=== PATIENT | male | born 1960 | race Caucasian/White ===

== ENCOUNTER 2016-11-01 00:59 | Inpatient (IN) | payer OTHER ==
[~2016-11-01] VITALS: Ht 172.7 cm; Wt 96.6 kg
--- NOTE | ~2016-11-01 | CATH ---
Cardiac Diagnostic Report Demographics Patient Name ROBERTO Cardozo Gender Male Date of 1960 Age 56 year(s) Patient Number [id number] Date of Study 11/01/2016 Visit Number [id number] Room Number G63[address] [place] [id number] Ht 172.72 cm Wt 97.7 kg Referring Efstratiou Primary Physician Physician Lenny Boateng MD Performing Efstratiou Secondary Physician Physician Lenny Boateng MD Diagnostic Efstratiou Assisting Physician Physician Lenny Boateng MD Interventional Physician Consumer Marketing Specialist Physician Findings and Conclusions Diagnostic Findings and Conclusion Patent recent stent No other critical stenosis or slow flow Diagnostic Recommendations Continue ASA and Birlinta Add amlodipine 2.5 mg Procedure Description The patient was brought to the diagnostic cardiac catheterization-EP laboratory in the fasting, non-sedated state. Informed consent was obtained in the written and verbal form after the risks and benefits were explained. The patient had no further questions and agreed to proceed. The planned puncture-incision site(s) were shaved and prepped with ChloraPrep and draped in the usual sterile manner. Supplemental oxygen, and pain control medications were delivered by a registered nurse under physician guidance. Surface ECG rhythm, blood pressure measurement, and pulse oximetry were monitored throughout the procedure. Arterial access. The access site was infiltrated with lidocaine. The vessel was entered with the Seldinger technique. A sheath was advanced into the vessel and used for catheter placement. Selective left coronary angiography. A catheter was advanced into the left coronary vessel ostium under Fluoroscopic guidance. Contrast was injected by hand. Images were obtained in multiple projections. Left heart catheterization. A catheter was advanced across the aortic valve to the left ventricle under fluoroscopic guidance. Resting hemodynamics were obtained. Selective right coronary angiography. A catheter was advanced into the right coronary vessel ostium under fluoroscopic guidance. Contrast was injected by hand. Images were obtained in multiple projections. Arterial artery hemostasis was achieved. The patient was transferred to a regular nursing floor via cart accompanied by a nurse. The patient left the laboratory in stable condition. Diagnostic Cath Status: Urgent Procedure Procedure Type Diagnostic procedure:Angiography:, Coronary Angios w/[facility] Indications: Chest pain and back pain. The procedure was explained in detail to the patient. Risks, complications and alternative treatments were reviewed. Written consent was obtained. Medications Reviewed with Patient prior to Procedure. Angiographic Findings Dominance: Right Cardiac Arteries and Lesion Findings LMCA: Normal (0% Stenosis). LAD: LAD stent jailed daig with DELANEY flow 3There is a previous stent on Prox LAD Proximal subsection showing wide patency. Lesion on Prox LAD: Ostial.30% stenosis . Lesion on 1st Diag: Ostial.60% stenosis . LCx: No significant stenosis RCA: Lesion on Prox RCA: Proximal subsection.60% stenosis . Coronary Tree Procedure Data Procedure Date Date: 11/01/2016Start: 03:44 PMEnd: 04:13 PM Entry Locations - Retrograde Percutaneous access was performed through the Right Radial artery (Primary location). A 6 Fr sheath was inserted. Unsuccessful closure attempt was performed using: an R band. Hemostasis was successfully obtained using Mechanical Compression. Closure Comments: R band applied by Nitza. 13 ml of air in band.. Procedure Medications Order and Administration + + + +--------+ !Time !Medication !Dosage !Route ! + + + +--------+ !11/01/2016 03:48 PM !Radial Heparin (ACC_3) !5000 units !I.A. ! + + + +--------+ !11/01/2016 03:48 PM !Radial Verapamil !1.5 mg !I.A. ! + + + +--------+ !11/01/2016 03:49 PM !Radial Nitroglycerin !200 mcg !I.A. ! + + + +--------+ !11/01/2016 03:51 PM !Oxygen !2 l/min !NC ! + + + +--------+ 11/01/2016 04:06 PM !Oxygen ! !NC ! + + + +--------+ Devices Used - A6 Fr. BS JL 3.5 Diag. Catheterwas used for:Left coronary angiography. - A6 Fr. BS JR 4 Diag. Catheterwas used for:Right coronary angiography. Contrast Material - Isovue 04273 ml Fluoroscopy Time: Diagnostic: 5:48 minutes. Total: 5:48 minutes. Fluoroscopy Dose: Diagnostic: 882 mGy. Total: 882 mGy. Estimated Blood Loss: 20 ml. Medical History Performed Procedures and Imaging Results - No ACC stress or imaging studies were performed. Allergies - No known allergies. Risk Factors The patient risk factors include:prior PCI on 11/01/2016;hypertension, last creatinine: 1.1 mg/dl, creatinine clearance: 104.85 ml/min and Current/Recent(w/in 1 year) tobacco use. Admission Data Admission Date: 11/01/2016 Admission Time: 02:08 AM Admit Source: Transfer [facility] Insurance Payors: Private health insurance. Admission Medications + +------+------+ + + + + !Medication !Dosage!Times !Last !Last !Administered !Comments ! ! ! !Per !Delivery !Delivery ! ! ! ! ! !Day !Date !Time ! ! ! + +------+------+ + + + + !Aspirin ! ! ! ! !Yes ! ! !(any) ! ! ! ! ! ! ! + +------+------+ + + + + !Statin (any)! ! ! ! !Yes ! ! + +------+------+ + + + + !RACHEAL ! ! ! ! !Yes ! ! !Inhibitor ! ! ! ! ! ! ! !(any) ! ! ! ! ! ! ! + +------+------+ + + + + !Beta Angel Luis! ! ! ! !Yes ! ! !(any) ! ! ! ! ! ! ! + +------+------+ + + + + !Bivalirudin ! ! ! ! !Yes ! ! + +------+------+ + + + + Clinical Evaluation Leading to Procedure - The patient's CAD presentation was assessed as: Unstable angina. - The patient's anginal syndrome during the past two weeks was assessed as: Class IV according to the [place] Cardiovascular [employer] Classification System (CCS). Snapshots Hemodynamics Condition: Rest O2 Consumption: Estimated: 247.14Heart Rate: 66 bpm Pressures (mmHg) +-----+ + !Site !Pressure ! +-----+ + !LV !123/9 ,27 ! +-----+ + !LV !121/9 ,26 ! +-----+ + !AO !124/76 (99) ! +-----+ + !LV !123/9 ,27 ! +-----+ + Valve Gradients and Areas + +---------+---------+---------+ +---------+ + !Valve !Peak !Mean !Area !Index !Flow !Source ! + +---------+---------+---------+ +---------+ + !Aortic !0 !0 ! ! ! ! ! + +---------+---------+---------+ +---------+ + !Aortic !0 !0 ! ! ! ! ! + +---------+---------+---------+ +---------+ + Shunts Oxygen Values O2 Capacity 225.76 O2 Consumption 247.14 Signatures dtt: Edd Campa dtblanche: 11/01/16 1544 Physician Self Edit
--- NOTE | ~2016-11-01 | CATH ---
Cardiac Diagnostic + PCI Report Demographics Patient Name ROBERTO Cardozo Gender Male Date of 1960 Age 56 year(s) Patient Number [id number] Date of Study 11/01/2016 Visit Number [id number] Room Number G63[address] [place] [id number] Ht 172.72 cm Wt 97.7 kg Referring Jalenamisha Manuel Allen MD Primary Physician Physician Performing Efstratiou Secondary Physician Physician Lenny Boateng MD Diagnostic Efstratiou Assisting Physician Physician Lenny Boateng MD Interventional Efstratiou Physician Support Staff Physician Lenny Boateng MD Findings and Conclusions Diagnostic Findings and Conclusion Moderate stenosis proximal RCA. 100% proximal LAD is culprit vessel. Diagnostic Recommendations PCI to LAD. Interventional Findings and Conclusion Successful aspiration thrombectomy followed by PEDRITO to proximal LAD. Interventional Recommendations DAPT indefinitely. Smoking cessation. Procedure Description The patient was brought to the diagnostic cardiac catheterization-EP laboratory by emergency personal. Physician deemed procedure as EMERGENT. The planned puncture-incision site(s) were shaved and prepped with ChloraPrep and draped in the usual sterile manner. Supplemental oxygen and pain control medications were delivered by a registered nurse under physician guidance. Surface ECG rhythm, blood pressure measurement, and pulse oximetry were monitored throughout the procedure. Arterial access. The access site was infiltrated with lidocaine. The vessel was entered with the Seldinger technique. A sheath was advanced into the vessel and used for catheter placement. Selective left coronary angiography. A catheter was advanced into the left coronary vessel ostium under Fluoroscopic guidance. Contrast was injected by hand. Images were obtained in multiple projections. Selective right coronary angiography. A catheter was advanced into the right coronary vessel ostium under fluoroscopic guidance. Contrast was injected by hand. Images were obtained in multiple projections. Angioplasty and Stent Placement: A guiding catheter was used to intubate the vessel. A 0.14 wire was then used to cross the lesion. A balloon catheter was placed across the lesion and inflated. The balloon catheter was then removed. A Drug Eluting Stent was placed and inflated. Post placement angiograms were performed. Arterial artery hemostasis was achieved. The patient was transferred to PCU via cart accompanied by a nurse. The patient left the laboratory in stable condition. Diagnostic Cath Status: Emergency Interventional Cath Status: Emergency Procedure Procedure Type Diagnostic procedure:Angiography:, Coronary Angios PCI procedure:Drug Eluting Coronary Stent:, LAD Indications: Acute HI, Elevated troponin and Chest pain. Angiographic Findings Dominance: Right Cardiac Arteries and Lesion Findings LMCA: Normal. LAD: Lesion on Prox LAD: Proximal subsection.100% stenosis 28 mm length . Pre procedure DELANEY 0 flow was noted. Post Procedure DELANEY III flow was present. The guidewire cross was successful.The lesion was diagnosed as a moderate risk lesion.Culprit lesion. Devices used - Whisper Wire .014 x 190. Number of passes: 1. - Xpress-Way Aspiration Catheter. Number of passes: 2. - Promus Premier 4.0 x 28 Stent. 1 inflation(s) to a max pressure of: 18 yonny. Lesion on 1st Diag: Proximal subsection.30% stenosis . Comments:Post stent. LCx: Normal. RCA: Lesion on Prox RCA: Proximal subsection.50% stenosis . Coronary Tree Procedure Data Procedure Date Date: 11/01/2016Start: 02:25 AMEnd: 03:16 AM Entry Locations - Antegrade Percutaneous access was performed through the Right Radial artery (Primary location). A 6 Fr sheath was inserted. Hemostasis was successfully obtained using Mechanical Compression. Closure Comments: 14 ml of air in R. Band by Martin Hammond.. Procedure Medications Order and Administration + + + + + !Time !Medication !Dosage !Route ! + + + + + !11/01/2016 02:27 AM !Radial Nitroglycerin !200 mcg !I.A. ! + + + + + !11/01/2016 02:27 AM !Radial Verapamil !1.5 mg !I.A. ! + + + + + !11/01/2016 02:27 AM !Radial Heparin (ACC_3) !2500 units !I.A. ! + + + + + !11/01/2016 02:38 AM !Heparin (ACC_3) !6000 units !I.V. bolus ! + + + + + 11/01/2016 02:39 AM !Nitroglycerin ! !I.V. drip ! + + + + + 11/01/2016 02:42 AM !Fentanyl !25 mcg ! ! + + + + + !11/01/2016 02:46 AM !Integrilin (ACC_7) !18 mg !I.C. ! + + + + + !11/01/2016 02:52 AM !Nipride !200 mcg !I.C. ! + + + + + !11/01/2016 02:52 AM !Nipride !100 mcg !I.C. ! + + + + + !11/01/2016 02:59 AM !Nipride !200 mcg !I.C. ! + + + + + !11/01/2016 02:59 AM !Nipride !100 mcg !I.C. ! + + + + + !11/01/2016 03:10 AM !Heparin (ACC_3) ! !I.V. bolus ! + + + + + Devices Used - A6 Fr. XBLAD 3.5 Guide Catheterwas used for:Left coronary angiography. - A6 Fr. XBLAD 3.5 Guide Catheterwas used for:LAD Intervention. - A6 Fr. BS JR 4 Diag. Catheterwas used for:Right coronary angiography. Contrast Material - Isovue 524783 ml Fluoroscopy Time: Diagnostic: 6:54 minutes. Total: 6:54 minutes. Fluoroscopy Dose: Diagnostic: 1806 mGy. Total: 1806 mGy. Estimated Blood Loss: 100 ml. Medical History Allergies - No known allergies. Risk Factors The patient risk factors include:Current/Recent(w/in 1 year) tobacco use. Admission Data Admission Date: 11/01/2016 Admission Time: 02:08 AM Admit Source: Transfer acute care facility Insurance Payors: Private health insurance. Clinical Evaluation Leading to Procedure - The patient's CAD presentation was assessed as: STEMI.The symptom onset was first noted on 11/01/2016 12:30 AM(time was estimated). Snapshots Hemodynamics Condition: Rest O2 Consumption: Estimated: 232.55Heart Rate: 48 bpm Pressures (mmHg) +-----+ + !Site !Pressure ! +-----+ + !AO !107/74 (90) ! +-----+ + !AO !6/-1 (3) ! +-----+ + !AO !100/77 (89) ! +-----+ + Shunts Oxygen Values O2 Capacity 225.76 O2 Consumption 232.55 Signatures dtt: Edd Campa dtd: 11/01/16 0225 Physician Self Edit
--- NOTE | ~2016-11-01 | ECHO ---
Transthoracic Echocardiography Report (TTE) Demographics Patient Name HENRIQUE MEJIA Date of Study 11/01/2016 Patient Number [id number] Visit Number [id number] Date of 1960 Room Number G6313 Gender Male Number Age 56 year(s) Referring Lokesh Galvez Night Time Nanny Vinete Boateng MD Physician Interpreting [facility] Conveyor Mechanic Physician Lenny Boateng MD Supervising Ordering [facility] MD/MLP Physician Lenny Boateng MD Nurse Stress Dope Dry House Operator Conclusions Contractility Score Summary At rest the following contractility abnormalities were noted: Hypokinesis of the Mid infero-septal, the Mid inferior, the Apical inferior, the Basal santino-septal, the Basal infero-septal and the Basal inferior segments; Akinesis of the Apical septal, the Apical lateral, the Apical anterior and the Apical cap segments; Dyskinesis of the Mid santino-septal segment. Contractility of all other segments appeared normal. Summary The estimated left ventricular ejection fraction is 40-45%. Mild to moderate concentric left ventricular hypertrophy. Diastolic assessment reveals Grade I diastolic dysfunction. Procedure Type of Study TTE procedure:2D Echocardiogram, M-Mode, Doppler , Color Doppler. Procedure Date Date: 11/01/2016 Start: 08:15 AM Study Location: Inpatient Portable Technical Quality: Adequate visualization Indications:Post PTCA. Additional Indications:Post STEMI Appropriate Use Criteria: 9 Patient Status: Routine HR: 58 bpm BP: 127/76 mmHg Allergies - No known allergies. M-Mode/2D Measurements LV Diastolic Dimension: 4.88 cm LV Systolic Dimension: 3.64 cm LV Septum Diastolic: 1.34 cm LV PW Diastolic: 1.23 cm AO Root Dimension: 2.9 cm Cardiac Output: 3.33 l/min LA Dimension: 3.4 cm EF Estimated: 45 % LVOT: 2 cm LVOT VTI: 18.3 cm RV Base: 2.54 cm LV Stroke volume: 57.46 ml RV Length: 7.29 cm TAPSE: 2.24 cm TDI-S': 16 cm/s Doppler Measurements AV Peak Velocity: 1.16 m/s MV Peak E-Wave: 0.61 m/s AV Peak Gradient: 5.38 mmHg MV Peak A-Wave: 0.85 m/s AV Mean Gradient: 3 mmHg MV E/A Ratio: 0.71 LVOT Peak Velocity: 0.92 m/s MV P1/2t: 37 msec TR Gradient:3.21 mmHg PV Peak Velocity: 0.98 m/s Estimated RAP:15 mmHg PV Peak Gradient: 3.87 mmHg Estimated RVSP: 18 mmHg Estimated PASP: 18.21 mmHg E' Septal Velocity: 0.07 m/s A' Septal Velocity: 0.11 m/s E' Lateral Velocity: 0.08 m/s A' Lateral Velocity: 0.13 m/s Findings Left Ventricle The left ventricle is normal in size . Mild to moderate concentric left ventricular hypertrophy. Diastolic assessment reveals Grade I diastolic dysfunction. Right Ventricle Normal right ventricle structure and function. Left Atrium Normal left atrial size. Right Atrium Normal right atrial size. IVC measures 2.26 cm with poor inspiratory collapse. Mitral Valve Mild mitral annular calcification. Aortic Valve The aortic valve is mildly sclerotic. Tricuspid Valve Trivial tricuspid regurgitation by color Doppler. Pulmonic Valve Normal pulmonic valve structure and function. Pericardial Effusion No evidence of pericardial effusion. Miscellaneous Visualized portions of the aortic root and ascending aorta appear normal in size. Pleural Effusion No evidence of pleural effusion. Contractility Score LV regional wall motion:(0-Non visualized 1-Normal 2-Hypokinesis 3-Akinesis 4-Dyskinesis 5-Aneurysm) Signature dtt: Edd Campa dtd: 11/01/16 0815 Physician Self Edit
[2016-11-01] MEDS ORDERED: VITAMIN D34000 UNIT PO (03:29)
--- NOTE | 2016-11-01 03:51 | NUR ---
Patient presented to [place] emergency room with 8/10 chest pain. EKG there showed ST elevation. Transferred to [facility]. To laboratory veterinarian upon arrival. Right radial cath with stent to LAD. History of high cholesterol, not on medication, heartburn and arthritis. Pack a day smoker for 30 years. Alert and oriented. Pleasant and cooperative with cares.
[2016-11-01 05:22] LABS: CALCIUM 8.4 mg/dL (8.5-10.5)
[2016-11-01 05:23] LABS: ALBUMIN 3.5 gm/dL (3.5-5.0); ANION GAP 13.4 (10.0-19.0); BLOOD UREA NITROGEN 20 mg/dL (6-24); CHLORIDE 112 mMol/L (96-110); CO2 21 mMol/L (22-32); CREATININE 1.1 mg/dL (0.6-1.3); ESTIMATED GFR (MDRD EQUATION) > 60; POTASSIUM 4.4 mMol/L (3.7-5.1); SODIUM 142 mMol/L (135-145); TOTAL BILIRUBIN 0.6 mg/dL (0.0-1.5); TOTAL PROTEIN 6.5 g/dL (6.0-8.4)
[2016-11-01 05:24] LABS: ALK PHOS 58 IU/L (33-138); ALT 73 IU/L (12-78); AST 405 IU/L (10-40)
--- NOTE | 2016-11-01 16:37 | NUR ---
Significant Event: pt had upper back pain today, then some chest discomfort, ms and nitro did not help. Lovenox and brillinta and tylenol and heat applied. Pt to matlab developer at 1530, no intervention. TR band r)radial again. Pt family here with him. Pt uses urinal. Up to chair this am. Follow up:
--- NOTE | 2016-11-02 04:55 | NUR ---
Significant Event: Patient is alert and oriented x 3. VSS on room air. HRs in the 50s-70s. SBPs in the high 90s-1 teens. Afebrile. Up with 1 assist. Coban to right wrist intact. 2+ pulse, soft, nontender, slightly ecchymotic. Patient had 10 beat run of V tach at beginning of shift, MD aware. To call if >10. Right hand IV, saline locked. Left hand IV with NS running TKO and Nitro at 5mcg. Tylenol given for headache at 0433. Patient is pleasant and cooperative with cares. Follow up:
[2016-11-02 05:02] LABS: BLOOD UREA NITROGEN 11 mg/dL (6-24); CALCIUM 8.5 mg/dL (8.5-10.5); CHLORIDE 109 mMol/L (96-110); CO2 25 mMol/L (22-32); CREATININE 1.1 mg/dL (0.6-1.3); ESTIMATED GFR (MDRD EQUATION) > 60; SODIUM 140 mMol/L (135-145)
--- NOTE | 2016-11-02 16:23 | NUR ---
Significant Event: VSS AND RA. DENIES CP. AFEBRILE. AMBULATES FERNANDEZ SEVERAL TIMES WITHOUT COMPLAINTS. NITRO GTT D/C'D THIS AM. SBPS 110S-130S. Follow up: CONTINUE PLAN OF CARE; D/C TMRW.
--- NOTE | 2016-11-03 04:48 | NUR ---
Significant Event: UP AD ALIX IN ROOM. DENIES PAIN ALL NIGHT. R) WRIST REMAINS SOFT WITHOUT DRAINAGE. PT SLEEPING WELL. REMAINS ON ROOM AIR. DENIES SOB. HR 50s-60s ALL NIGHT. SBP 96-103 AND DBP 60-66. COREG HELD AT HS DUE TO HR IN THE LOW 50s AND SBP IN THE 90s. Follow up:
[2016-11-03] MEDS ORDERED: NORVASC2.5 MG PO (11:34)
[2016-11-03] MEDS ORDERED: ASPIRIN EC81 MG PO (11:37)
[2016-11-03] MEDS ORDERED: COREG 3.1253.125 MG PO (11:38)
[2016-11-03] MEDS ORDERED: LIPITOR80 MG PO (11:38)
[2016-11-03] MEDS ORDERED: VASOTEC2.5 MG PO (11:40)
[2016-11-03] MEDS ORDERED: INSPRA25 MG PO (11:40)
[2016-11-03] MEDS ORDERED: NICOTINE PATCH1 EAC2 TRANS (11:42)
[2016-11-03] MEDS ORDERED: BRILINTA90 MG PO (11:42)
[2016-11-03] MEDS ORDERED: TYLENOL325 MG PO (11:43)
== END 2016-11-03 12:40 | disposition disaster alternative care site (69) | DRG 247 ==
LOC: GPCU 00:59
PROVIDERS: ADMIT Internal Medicine Cardiovascular Disease
DX: I21.3 ST elevation (STEMI) myocardial infarction of unspecified site (principal); I47.2 Ventricular tachycardia; I25.10 Atherosclerotic heart disease of native coronary artery without angina pectoris; Z23 Encounter for immunization; I50.9 Heart failure, unspecified
CPT/HCPCS: C1757; C1769; C1874; C1887; C1894; C9606; G0009; J0461; J1327; J1644; J1650; J2270; J2370; J3010; J7030; J7040; J7050; J7060

== ENCOUNTER → 2016-11-01 | Outpatient (CLI) | payer OTHER ==
[~2016-11-01] MED LIST: ALIGN4 MG PO; ASPIRIN EC81 MG PO; BRILINTA90 MG PO; COREG 3.1253.125 MG PO; ENTRESTO 24 MG1 EACH PO; INSPRA25 MG PO; K-TAB ER20 MEQ PO; LASIX20 MG PO; LIPITOR80 MG PO; NICOTINE PATCH1 EAC2 TRANS; NITROSTAT0.4 MG SL; NORVASC2.5 MG PO; PEPCID20 MG PO; PROTONIX40 MG PO; TYLENOL325 MG PO; VASOTEC2.5 MG PO; VITAMIN D34000 UNIT PO
== END | disposition disaster alternative care site (69) ==
LOC: GAIR 01:52
DX: I21.09 ST elevation (STEMI) myocardial infarction involving other coronary artery of anterior wall (principal); R07.9 Chest pain, unspecified
CPT/HCPCS: A0422; A0431; A0436; J2270

== ENCOUNTER → 2016-11-10 | Outpatient (CLI) | payer OTHER ==
--- NOTE | ~2016-11-10 | ESTC ---
Cardiac Perfusion Imaging Demographics Patient Name ROBERTO Cardozo Gender Male Patient Number [id number] Race Visit Number [id number] [place] [id number] Room Number Accession Number [id number] Height 68 inches Date of 1960 Weight 200 pounds A MD Vanna Barreto Interpreting Lokesh Galvez Date of study 11/10/2016 Physician A MD Pretty Abraham MD Supervising MD/MLP Lokesh Galvez NM Technologist A Ordering Physician Stress auto technician Stress ECG Reading Lokesh Galvez Nurse Mira Cardozo Physician A RN The procedure was explained in detail to the patient. Risks, complications and alternative treatments were reviewed. Written consent was obtained. Medications Reviewed with Patient prior to Procedure. Procedure Procedure Type: Nuclear Stress Test:Cardiolite Stress Test Procedure Start time: 11/10/2016 08:03 Indications: Post-PTCA. Risk Factors The patient risk factors include:prior PCI on 11/01/2016;former tobacco use, treated hypercholesterolemia and dyslipidemia. Conclusions Summary Perfusion Images: The overall quality of the study is good. Left ventricular cavity is noted to be normal on the stress and normal on the rest images. There is no evidence of abnormal lung activity. The right ventricle is not visualized an cannot be assessed. Impression ECG portion of the exercise stress test is clinically negative for ischemia by diagnostic criteria. DTS was 5. Pt achieved 7 METS. Myocardial perfusion imaging is moderately abnormal. 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 Overall left ventricular systolic function was mildly decreased and estimated at 50%. THe apex and mid to distal coronado are severely hypokinetic. TID ratio is 1.05. This is a intermediate risk stress test. Stress Protocols Resting ECG SR ASMI Pre-stress physical exam: Patient assessed by Dr Judge prior to testing. Stress Protocol:Exercise Predicted HR: 165 bpm ECG Findings Indeterminate ECG due to baseline abnormalities. Arrhythmias No rhythm abnormality. Symptoms Shortness of breath. Stress Interpretation Appropriate hemodynamic response to exercise. No significant ST-T wave changes with exercise. EKG portion is negative for ischemia by diagnostic criteria. The [place] Treadmill score was 5 .This corresponds to a low risk stress test. Imaging Results Summed scores - Summed stress score: 17 - Summed rest score: 12 - Summed difference score: 5 Stress ejection Ejection fraction:50 % EDV :159 ml ESV :79 ml Stroke volume :80 ml LV mass :163 gr Medical History Admission Medications + +------+ + + +---------+ !Name !Dosage!Times per day !Start date !Stop date !Details ! + +------+ + + +---------+ !Beta Angel Luis (any) ! ! ! ! ! ! + +------+ + + +---------+ !Aspirin (any) ! ! ! ! ! ! + +------+ + + +---------+ !Statin (any) ! ! ! ! ! ! + +------+ + + +---------+ !Ticagrelor ! ! ! ! ! ! + +------+ + + +---------+ Admission Data Admission date: 11/10/2016 Admission Time: 06:33 Hospital Status: Outpatient. Signatures dtt: Edd Judge dtd: 11/10/16 0803 Physician Self Edit
== END | disposition disaster alternative care site (69) ==
LOC: GRAD 06:33
DX: I25.2 Old myocardial infarction (principal); E78.00 Pure hypercholesterolemia, unspecified; E78.5 Hyperlipidemia, unspecified; Z87.891 Personal history of nicotine dependence
CPT/HCPCS: A9500

== ENCOUNTER → 2016-11-26 | Outpatient (CLI) | payer OTHER ==
[2016-11-26 10:50] LABS: BASOPHIL % 0.4 %; EOSINOPHIL # 0.2 K/uL (0.0-0.5); EOSINOPHIL % 1.7 %; HEMATOCRIT 45.2 % (37.0-53.0); HEMOGLOBIN 15.7 g/dL (12.0-17.0); IMMATURE GRANULOCYTE % 0.4 %; LYMPHOCYTE # 1.6 K/uL (0.8-4.0); LYMPHOCYTE % 16.1 %; MCHC 34.7 gm/dL (32.0-36.5); MCV 92.1 fl (83.0-98.0); MONOCYTE # 0.7 K/uL (0.0-1.0); MONOCYTE % 6.9 %; MPV 12.1 fl (9.4-12.4); NEUTROPHIL # (ANC) 7.5 K/uL (1.4-9.0); NEUTROPHIL % 74.5 %; NRBC % 0 /100WBC (0-0.00); PLATELET COUNT 178 K/uL (150-450); RBC 4.91 M/uL (4.00-6.00); RDW-CV 12.3 % (11.9-14.6); WBC 10.1 K/uL (4.0-11.0)
[2016-11-26 11:01] LABS: ANION GAP 12.2 (10.0-19.0); BLOOD UREA NITROGEN 12 mg/dL (6-24); CALCIUM 9.3 mg/dL (8.5-10.5); CHLORIDE 109 mMol/L (96-110); CO2 23 mMol/L (22-32); CPK 92 IU/L (35-332); ESTIMATED GFR (MDRD EQUATION) > 60; POTASSIUM 4.2 mMol/L (3.7-5.1); SODIUM 140 mMol/L (135-145)
== END ==
LOC: LNHI 10:43
PROVIDERS: Internal Medicine Cardiovascular Disease
DX: I25.10 Atherosclerotic heart disease of native coronary artery without angina pectoris (principal); R07.89 Other chest pain

== ENCOUNTER → 2016-12-08 | Outpatient (CLI) | payer OTHER ==
[2016-12-08 12:59] LABS: ANION GAP 13.7 (10.0-19.0); BLOOD UREA NITROGEN 21 mg/dL (6-24); CALCIUM 9.2 mg/dL (8.5-10.5); CHLORIDE 104 mMol/L (96-110); CO2 27 mMol/L (22-32); CREATININE 1.2 mg/dL (0.6-1.3); ESTIMATED GFR (MDRD EQUATION) > 60; SODIUM 141 mMol/L (135-145)
[2016-12-08 13:01] LABS: POTASSIUM 3.7 mMol/L (3.7-5.1)
== END | disposition disaster alternative care site (69) ==
LOC: LNHI 12:42
PROVIDERS: Internal Medicine Cardiovascular Disease
DX: E78.2 Mixed hyperlipidemia (principal); I25.5 Ischemic cardiomyopathy; I50.22 Chronic systolic (congestive) heart failure; I25.119 Atherosclerotic heart disease of native coronary artery with unspecified angina pectoris

== ENCOUNTER 2017-01-10 21:44 | Observation (INO) | payer OTHER ==
[~2017-01-10] VITALS: Ht 172.7 cm; Wt 84.8 kg
--- NOTE | ~2017-01-10 | CON ---
PATIENT'S NAME: HENRIQUE MEJIA [facility] AGE: 56 Y [address] ROOM: [place] [address] LOCATION: GPCU ADMIT DATE: 01/11/2017 Consultation DISCHARGE DATE: 01/11/2017 FAMILY PHYSICIAN: Jensen Farnsworth MD ATTENDING PHYSICIAN: David Lewis V DATE OF CONSULTATION: 01/11/2017 REFERRING PHYSICIAN: Leigh Olsen MD REASON FOR CARDIOLOGY CONSULT: Chest pain. HISTORY OF PRESENT ILLNESS: This is a 56-year-old male, familiar to [facility]. He was last seen in the office by Dr. Campa on 12/08/2016. He has a previous history of coronary artery disease with recent stenting to the LAD. He presented to the emergency department yesterday with complaints of lightheadedness and upper back pain. Due to a decrease in blood pressure, his Entresto dose was decreased on 01/10/2017, after his daughter called the office with complaints of his new symptoms. He does admit to having had a poor appetite over the last few days and it appears to be dehydrated. He denies any palpitations, nausea, or vomiting. At the time of this consult, he is resting comfortably in bed with no acute complaints at this time. PAST MEDICAL HISTORY: 1. Coronary artery disease. 2. Chronic systolic congestive heart failure. 3. Hypertension. 4. Hyperlipidemia. PAST SURGICAL HISTORY: 1. Coronary artery stenting to the proximal LAD. 2. Right hip surgery. FAMILY HISTORY: The patient's mother at age of 85 due to heart disease. His father at the age of 74 due to COPD. SOCIAL HISTORY: The patient is a former cigarette smoker. He quit smoking in 2017 and smoked for a total of 30 years. He denies alcohol or illicit drug use. CURRENT MEDICATIONS: 1. Aspirin 81 mg p.o. daily. 2. Brilinta 90 mg p.o. twice daily. PATIENT'S NAME: HENRIQUE MEJIA [facility] AGE: 56 Y [address] ROOM: [place] [address] LOCATION: GPCU ADMIT DATE: 01/11/2017 Consultation DISCHARGE DATE: 01/11/2017 FAMILY PHYSICIAN: Jensen Farnsworth MD ATTENDING PHYSICIAN: David Lewis V 3. Entresto 24/26 mg p.o. twice daily. 4. Inspra 25 mg p.o. daily. 5. Potassium chloride 40 mEq p.o. twice daily. 6. Lipitor 80 mg p.o. daily. 7. Vitamin D 8000 units p.o. daily. 8. NicoDerm patch 21 mg transdermally daily. MEDICATION ALLERGIES: No known medication allergies. REVIEW OF SYSTEMS: Pertinent positive review of systems as listed in HPI. All other review of systems evaluated and negative. DIAGNOSTICS: CMS evaluation shows a sodium of 140, potassium 3.1, BUN of 19, creatinine 1.2, glucose of 100, and a magnesium of 2.3. He has a proBNP level of 255. Cardiac enzyme trend shows a CPK of 199, then 173, then 163; CK-MB of 2.0 x2 values and then 1.3; and troponin I of less than 0.04 x3 values. PHYSICAL EXAMINATION: VITAL SIGNS: Temperature 97.9, pulse 44, respirations 16, blood pressure 156/71, O2 saturation 97% on room air. The patient weighs 84.8 kg. SKIN: [place], warm, and dry. EYES: Sclerae clear. No xanthelasma. ENT: Oral mucosa is pink and moist. No jugular venous distention or carotid bruits. CHEST: Respirations are even and unlabored. LUNGS: Clear to auscultation. HEART: Regular rate and rhythm. Normal S1, S2. Is bradycardic, but continues in a sinus rhythm. ABDOMEN: Soft and nontender. MUSCULOSKELETAL: Gait is normal. EXTREMITIES: Peripheral pulses are palpable. No clubbing, cyanosis, or edema. PSYCH: Alert and oriented. Mood and affect are appropriate. IMPRESSION AND PLAN: Per Dr. Leigh Olsen. 1. Atypical chest pain, currently resolved. 2. Coronary artery disease with recent coronary artery stenting. His cardiac enzymes as well as EKG show no signs suggestive of acute changes. He is on guideline-directed medical therapy. He is not on beta blockers due to his extreme bradycardia. 3. Chronic systolic congestive heart failure, [place] [employer] PATIENT'S NAME: HENRIQUE MEJIA [facility] AGE: 56 Y [address] [address] LOCATION: GPCU ADMIT DATE: 01/11/2017 Consultation DISCHARGE DATE: 01/11/2017 FAMILY PHYSICIAN: Jensen Farnsworth MD ATTENDING PHYSICIAN: David Lewis V class II, currently on Entresto, Lasix, and Inspira. 4. Hypotension. 5. Bradycardia, asymptomatic but we will avoid further AV grant blockade. Overall, the patient appears to be dehydrated with no signs of acute coronary syndrome. We will discontinue his Lasix and have him keep his followup appointment with Dr. Campa on 01/21/2017. Overall, the patient also describes back pain and then chest pain, which he describes as different from his previous myocardial infarction, but he did want to "check it out." We will go through congestive heart failure education with him again and change his Lasix to p.r.n. dosing greater than 3-pound weight gain or increased lower extremity edema present. We will also check another EKG prior to his possible dismissal today. Thank you for this consult. Thank for allowing [facility] to interact in the care of this patient. SURENDRA GARCIA APRN FOR MD RAKESH KEITH/piter /[id number] d: 01/11/17 1743 t: 01/17/17 1339, CONSULTATION REPORT
--- NOTE | ~2017-01-10 | DS ---
PATIENT'S NAME: HENRIQUE MEJIA [facility] AGE: 56 Y [address] ROOM: [place] [address] LOCATION: GPCU ADMIT DATE: 01/11/2017 Discharge Summary DISCHARGE DATE: 01/11/2017 FAMILY PHYSICIAN: Jensen Farnsworth MD ATTENDING PHYSICIAN: David Lewis V DISCHARGE DIAGNOSES: 1. Chest discomfort. 2. Hypotension. 3. Hypokalemia. 4. Reflux. 5. Chronic systolic congestive heart failure. REASON FOR ADMISSION: Chest discomfort and low blood pressure. HOSPITAL COURSE: Asher Lisbeth feels he was just a little dehydrated. He is status post stent and that seems to be functioning well. His proBNP was slightly elevated, but the remainder of his lab was benign with the exception of a potassium down at 3.1. We will go ahead and replace him in the short term. He will need a potassium recheck in 1 week since he is on medications that can potentially raise the potassium significantly. Additionally, he was having symptoms of dysphagia. This morning, said he felt like he can take fluids and pills okay, but when he ate he felt like it was collecting in the back of his throat. Further dialog disclosed he was taking his proton pump inhibitor with all his other medications in the morning, and I told him he needed to take that in the morning a half an hour before taking any other food or medications, although he could do just a sip of water with it. If he takes this and just not eradicate these symptoms then I suggested follow up with his primary physician regarding modified barium swallow or some other workup for the dysphagia. That said, if Dr. Bob okays his discharge with medications as ordered, he will go out on a cardiac prudent diet. Activity as tolerated. Medications per nursing med reconciliation. Follow up in 1 week as stated above. See my note in the chart regarding his physical exam. Note that this discharge preparation took greater than 30 minutes. PATIENT'S NAME: HENRIQUE MEJIA [facility] AGE: 56 Y [address] ROOM: [place] [address] LOCATION: [facility] ADMIT DATE: 01/11/2017 Discharge Summary DISCHARGE DATE: 01/11/2017 FAMILY PHYSICIAN: Jensen Farnsworth MD ATTENDING PHYSICIAN: David Lewis MD CCAlejandro/modl /[id number] d: 01/12/17 0254 t: 01/31/17 1609, DISCHARGE SUMMARY
--- NOTE | ~2017-01-10 | HP ---
PATIENT'S NAME: HENRIQUE MEJIA [facility] AGE: 56 Y [address] ROOM: [place] [address] LOCATION: GPCU ADMIT DATE: 01/11/2017 History & Physical DISCHARGE DATE: FAMILY PHYSICIAN: Jensen Farnsworth MD ATTENDING PHYSICIAN: ESTRELLITA HUANG V DATE OF SERVICE: CHIEF COMPLAINT: Back pain. HISTORY OF PRESENT ILLNESS: The patient is a 56-year-old male with past medical history of acute coronary syndrome, status post a drug-eluting stent to his LAD approximately 2 months ago. He also has a past medical history of chronic systolic congestive heart failure, on Entresto and Lasix. He presented to the ER with complaints of upper dull back pain which was on and off in the course of the whole day. At worst, it got to be 3 to 4 out of 10, but it was very consistent in quality with symptoms that he had upon presentation with his heart attack 2 months ago. In the ER, the patient had a grossly unremarkable workup and observation, an admission has been requested. REVIEW OF SYSTEMS: Positive for diminished appetite in the course of last couple of days. All systems have been reviewed and are negative aside from pertinent positives mentioned above. PAST MEDICAL HISTORY: 1. Coronary artery disease. 2. Acute coronary syndrome. 3. Percutaneous transluminal angioplasty with placement of a stent to 100% occluded LAD. 4. Chronic systolic congestive heart failure. PAST SURGICAL HISTORY: None. SOCIAL HISTORY: The patient was a smoker, but has quit since the time of his heart attack. At this point, he uses nicotine patch. FAMILY HISTORY: PATIENT'S NAME: HENRIQUE MEJIA [facility] AGE: 56 Y [address] ROOM: [place] [address] LOCATION: GPCU ADMIT DATE: 01/11/2017 History & Physical DISCHARGE DATE: FAMILY PHYSICIAN: Jensen Farnsworth MD ATTENDING PHYSICIAN: ESTRELLITA HUANG V Reviewed and noncontributory due to known past medical history. PHYSICAL EXAMINATION: VITAL SIGNS: His blood pressure is 86/56, heart rate is 56 and regular, saturating 96% on room air, afebrile, and respirations 16. GENERAL APPEARANCE: Well-developed, well-nourished, middle-aged male, in no acute distress. NEUROLOGICAL: Nonfocal. EYES: Pupils are equal and reactive to light. LYMPHATIC: No cervical lymphadenopathy. ENDOCRINE: No thyromegaly. LUNGS: Clear to auscultation bilaterally. HEART: Rate is bradycardic and regular with no appreciable murmurs, gallops, or rubs. ABDOMEN: Soft, nontender, and nondistended. : No costovertebral angle tenderness. VASCULAR: 2+ pedal pulses. MUSCULOSKELETAL: Unremarkable. SKIN: Warm and dry. PSYCHIATRIC: Slightly irritated mood with preserved affect and cognition. DIAGNOSTIC DATA: Review of the studies from the ER shows an EKG which shows sinus rhythm at 65 beats per minute with low-voltage QRS and poor R-wave progression in lateral leads. Two sets of cardiac enzymes are unremarkable. ASSESSMENT AND PLAN: This is a 56-year-old male with, 1. Strong recent history of coronary artery disease, who will be admitted for observation due to an intermediate angina. Given his recent procedure, we will request for MARCIA to evaluate him and decide on further steps. 2. Chronic systolic congestive heart failure. At this point, the patient appears quite compensated and we will continue him on his current full medical regimen. 3. History of tobacco use. Continue with nicotine patch. Additional management will depend on recommendations from Cardiology. Time dedicated to this patient's encounter is 25 minutes. ESTRELLITA HUANG MD PATIENT'S NAME: HENRIQUE MEJIA [facility] AGE: 56 Y [address] ROOM: [place] [address] [facility] ADMIT DATE: 01/11/2017 History & Physical DISCHARGE DATE: FAMILY PHYSICIAN: Jensen Farnsworth MD ATTENDING PHYSICIAN: ESTRELLITA HUANG/piter /[id number] D: [id number] T: 447 HISTORY & PHYSICAL
--- NOTE | ~2017-01-10 | ER ---
PATIENT'S NAME: HENRIQUE MEJIA [facility] AGE: 56 Y [address] ROOM: [place] [address] LOCATION: GPCU ADMIT DATE: 01/11/2017 ER/Outpatient Report DISCHARGE DATE: FAMILY PHYSICIAN: Jensen Farnsworth MD ATTENDING PHYSICIAN: ESTRELLITA HUANG V TIME: The patient was seen at 2200. HISTORY OF PRESENT ILLNESS: This is a 56-year-old male. He was previously reasonably healthy. He is in with a complaint of back pain and shoulder pain intermittently for the past 2 days associated with loss of appetite. He describes it as an aching pain. It is similar to his previous unstable angina/WA that occurred in October of this year. PAST MEDICAL HISTORY: Significant for 1. Coronary artery disease. He had a stent placed in October of this year. 2. He also has a history of congestive heart failure. His most recent ejection fraction was 40%. CURRENT MEDICATIONS: See list. REVIEW OF SYSTEMS: He denies any other recent illnesses. He has had a decreased appetite. No nausea. No vomiting. No diarrhea. All other systems are negative. SOCIAL HISTORY: He quit smoking in October. PHYSICAL EXAMINATION: GENERAL: An alert and cooperative male, in no acute distress. VITAL SIGNS: Stable. SKIN: Warm and dry. Color is normal. He appeared to be moderately uncomfortable. HEAD, EARS, EYES, NOSE, AND THROAT: Normal. NECK: Supple. HEART: Regular rate and rhythm without murmur. LUNGS: Clear. Breath sounds were equal. ABDOMEN: Soft and nontender. EXTREMITIES: Normal. NEUROLOGIC: Normal. PATIENT'S NAME: HENRIQUE MEJIA [facility] AGE: 56 Y [address] ROOM: [address] [place] [id number] LOCATION: GPCU ADMIT DATE: 01/11/2017 ER/Outpatient Report DISCHARGE DATE: FAMILY PHYSICIAN: Jensen Farnsworth MD ATTENDING PHYSICIAN: ESTRELLITA HUANG V DIAGNOSTIC STUDIES: EKG revealed normal sinus rhythm to sinus bradycardia, low voltage in chest leads, and an old anteroseptal infarct with no acute ST or T-wave changes. EMERGENCY ROOM COURSE: The patient was given nitroglycerin sublingual, and his pain resolved. Dr. Huang was called, who arrived promptly, evaluated the patient, and made arrangements to admit the patient. ASSESSMENT: 1. Chest pain/unstable angina. 2. Two months status post coronary angioplasty with stenting. PLAN: Admission for serial enzymes. MD LOR BANERJEE/evanl /[id number] d: 01/11/17 0453 t: 01/25/17 1819, OUTPATIENT REPORT
[~2017-01-10 21:44] MED LIST changes: -ALIGN4 MG PO; -ENTRESTO 24 MG1 EACH PO; -K-TAB ER20 MEQ PO; -LASIX20 MG PO; -NITROSTAT0.4 MG SL; -PEPCID20 MG PO; -PROTONIX40 MG PO
[2017-01-10 22:05] LABS: BASOPHIL % 0.4 %; EOSINOPHIL # 0.2 K/uL (0.0-0.5); EOSINOPHIL % 2.5 %; IMMATURE GRANULOCYTE % 0.3 %; LYMPHOCYTE # 1.9 K/uL (0.8-4.0); LYMPHOCYTE % 19.1 %; MCH 32.8 pg (27.0-34.0); MCHC 34.9 gm/dL (32.0-36.5); MCV 93.9 fl (83.0-98.0); MONOCYTE # 0.8 K/uL (0.0-1.0); MPV 11.6 fl (9.4-12.4); NEUTROPHIL # (ANC) 6.8 K/uL (1.4-9.0); NEUTROPHIL % 69.7 %; NRBC % 0 /100WBC (0-0.00); PLATELET COUNT 191 K/uL (150-450); RBC 4.58 M/uL (4.00-6.00); RDW-CV 12.7 % (11.9-14.6); WBC 9.8 K/uL (4.0-11.0)
[2017-01-10 22:16] LABS: INR - (THERAPEUTIC) 1.03 (0.92-1.07); PROTIME 10.8 SECONDS (9.8-11.4); PTT 26 SECONDS (25-32)
[2017-01-10 22:25] LABS: ALBUMIN 4.2 gm/dL (3.5-5.0); ALK PHOS 61 IU/L (33-138); ALT 57 IU/L (12-78); ANION GAP 12.1 (10.0-19.0); AST 31 IU/L (10-40); BLOOD UREA NITROGEN 19 mg/dL (6-24); CALCIUM 9.4 mg/dL (8.5-10.5); CHLORIDE 106 mMol/L (96-110); CO2 25 mMol/L (22-32); CPK 199 IU/L (35-332); CREATININE 1.2 mg/dL (0.6-1.3); ESTIMATED GFR (MDRD EQUATION) > 60; MAGNESIUM 2.3 mg/dL (1.8-2.6); POTASSIUM 3.1 mMol/L (3.7-5.1); SODIUM 140 mMol/L (135-145); TOTAL BILIRUBIN 0.8 mg/dL (0.0-1.5); TOTAL PROTEIN 7.7 g/dL (6.0-8.4)
[2017-01-11 00:20] LABS: CPK 173 IU/L (35-332)
[2017-01-11] MEDS ORDERED: ENTRESTO 24 MG1 EACH PO ×2 (02:41→02:44)
[2017-01-11] MEDS ORDERED: LASIX20 MG PO (02:45)
[2017-01-11] MEDS ORDERED: NITROSTAT0.4 MG SL (02:46)
--- NOTE | 2017-01-11 04:34 | NUR ---
pt alert and oriented upon arrival from er. from er by wheelchair, transfers with 1 assist standby, steady gait. denies pain when asked. slightly hypotensive, pulse also milena. iv to right ac in place saline locked. pt states he started have mid upper back pain and it was alot like the pain he had in october when he had an mi and had a left stent placed. has denies pain since arrival. on room air, denies sob. no noted skin issues. pt states he lives at home alone in [place]. uses call light approp.
--- NOTE | 2017-01-11 05:19 | NUR ---
Significant Event:Pt has continues to rest well during night. continues to deny chest pain or back pain when asked. vss continues to be slightly milena and hypotensive. continues to be on room air. Follow up:
[2017-01-11 07:38] LABS: CPK 163 IU/L (35-332)
[2017-01-11] MEDS ORDERED: PEPCID20 MG PO (08:36)
[2017-01-11] MEDS ORDERED: K-TAB ER20 MEQ PO (11:18)
--- NOTE | 2017-01-11 12:28 | NUR ---
Pt d/c to home with all belongings. edu on new meds. iv d/c'd. follow up appointment scheduled for next tuesday- appointment card given to patient.
== END 2017-01-11 12:39 | disposition disaster alternative care site (69) ==
LOC: GMED 21:44 → GPCU 01-11 01:37
PROVIDERS: Emergency Medicine; ADMIT Internal Medicine
DX: R07.89 Other chest pain (principal); I95.9 Hypotension, unspecified; E87.6 Hypokalemia; K21.9 Gastro-esophageal reflux disease without esophagitis; I25.2 Old myocardial infarction; Z87.891 Personal history of nicotine dependence; I11.0 Hypertensive heart disease with heart failure; I50.22 Chronic systolic (congestive) heart failure; E78.5 Hyperlipidemia, unspecified; Z98.890 Other specified postprocedural states; Z79.82 Long term (current) use of aspirin; Z79.899 Other long term (current) drug therapy
CPT/HCPCS: G0378

== ENCOUNTER → 2017-01-21 | Outpatient (CLI) | payer OTHER ==
[~2017-01-21] MED LIST changes: +ALIGN4 MG PO; +ENTRESTO 24 MG1 EACH PO; +K-TAB ER20 MEQ PO; +LASIX20 MG PO; +NITROSTAT0.4 MG SL; +PEPCID20 MG PO; +PROTONIX40 MG PO
[2017-01-21 10:28] LABS: ANION GAP 11.2 (10.0-19.0); BLOOD UREA NITROGEN 14 mg/dL (6-24); CALCIUM 9.5 mg/dL (8.5-10.5); CHLORIDE 108 mMol/L (96-110); CO2 25 mMol/L (22-32); CREATININE 1.2 mg/dL (0.6-1.3); ESTIMATED GFR (MDRD EQUATION) > 60; POTASSIUM 4.2 mMol/L (3.7-5.1); SODIUM 140 mMol/L (135-145)
== END | disposition disaster alternative care site (69) ==
LOC: LNHI 09:51
PROVIDERS: Internal Medicine Cardiovascular Disease
DX: I25.5 Ischemic cardiomyopathy (principal); E78.2 Mixed hyperlipidemia; I25.10 Atherosclerotic heart disease of native coronary artery without angina pectoris

== ENCOUNTER 2017-02-16 11:30 | Observation (INO) | payer OTHER ==
[~2017-02-16] VITALS: Ht 172.7 cm; Wt 80.5 kg
--- NOTE | ~2017-02-16 | ESTC ---
Cardiac Perfusion Imaging Demographics Patient Name ROBERTO Cardozo Gender Male Patient Number [id number] Race Visit Number [id number] Ethnicity Corporate ID Room Number G6319 Accession Number [id number] Height 68 inches Date of 1960 Weight 175 pounds Interpreting Sussy Cook Date of study 02/17/2017 Physician Supervising /JOSSELINE Cook NM Technologist Ordering Physician Stress sterile instrument technician Stress ECG Reading Sussy Cook Nurse Neo Damon Physician MD John Leal RN Procedure Procedure Type: Nuclear Stress Test:Exercise, Cardiolite Stress Test Procedure Start time: 02/17/2017 10:00 Indications: Chest pain. Risk Factors The patient risk factors include:prior PCI on 11/01/2016;former tobacco use, hypercholesterolemia, hypertension, dyslipidemia and prior MT . Conclusions Summary Medium inferolateral partially reversible mild defect. Small anteroseptal moderate partially reversible defect. No TID and normal LV size. LVEF:66%. Normal WM. DTS :7 Stress Protocols Resting ECG RSR Pre-stress physical exam: Un changed. Predicted HR: 165 bpm ECG Findings No ECG changes suggestive of ischemia. Arrhythmias No rhythm abnormality. Stress Interpretation Duration: 9:18 mins. Achieved:92% MPHR. METs: 10.5 DP:26 K. No chest pain. Reason for termination: SOB. No EKG changes of ischemia. No arrythmias. DTS : 7 (Low risk). Imaging Results High risk findings Summed scores - Summed stress score: 8 - Summed rest score: 7 - Summed difference score: 1 Stress ejection Ejection fraction:66 % EDV :125 ml ESV :43 ml Stroke volume :82 ml LV mass :133 gr LV size:Normal Normal LV function Imaging Protocols Rest Stress Isotope:Tc99m Sestamibi IV Isotope: Tc99m Sestamibi IV Isotope dose:12.2 mCi Isotope dose:37 mCi Date:02/17/2017 08:32 Date:02/17/2017 11:15 Technique: SPECT Technique: Gated Supine SPECT Supine IV remains in place after procedure. Scan Time:45-60 minutes post Scan Time:45-60 minutes post injection injection Medical History Admission Data Admission date: 02/16/2017 Admission Time: 11:48 Hospital Status: Inpatient. Signatures dtt: Joyce Hi dtd: 02/17/17 1000 Physician Self Edit
--- NOTE | ~2017-02-16 | ECHO ---
Transthoracic Echocardiography Report (TTE) Demographics Patient Name HENRIQUE MEJIA Date of Study 02/16/2017 D Patient Number [id number] Visit Number [id number] Date of 1960 Room Number G6319 Gender Male Number Age 56 year(s) Referring Restuarant Crew Worker Ethan CENTENO, Physician ISADORA Goddard Physician Interpreting Sussy Cook Director [place] Physician Supervising Ordering Sussy Cook MD/JOSSELINE Physician Nurse Stress Remarketing Manager Conclusions Contractility Score Summary Normal Left Ventricular contractility was noted. Summary The estimated left ventricular ejection fraction is 55%.Normal WM except the apex which appears moderately hypokinetic.Mild concentric left ventricular hypertrophy.Normal internal dimension. Mild pulmonic stenosis. Compared to study dated 11/01/2016 the EF is upto 55-60% compared to 40-45% with the WMA limited to the apex.There is mild PS. Procedure Type of Study TTE procedure:2D Echocardiogram, M-Mode, Doppler , Color Doppler. Procedure Date Date: 02/16/2017 Start: 02:14 PM Study Location: Inpatient Portable Technical Quality: Adequate visualization Appropriate Use Criteria: 9 Patient Status: Routine HR: 54 bpm BP: 113/60 mmHg Allergies - No known allergies. M-Mode/2D Measurements LV Diastolic Dimension: 4.32 cm LV Systolic Dimension: 2.4 cm LV Septum Diastolic: 1.13 cm LV PW Diastolic: 1.1 cm AO Root Dimension: 2.5 cm Cardiac Output: 4.95 l/min AV Cusp Separation: 1.8 cm RV Diastolic Dimension: 2.72 cm LA volume: 33 ml LVOT: 2.1 cm RV Base: 3.02 cm LVOT VTI: 26.5 cm RV Mid: 2.45 cm LV Stroke volume: 91.74 ml TAPSE: 3.07 cm TDI-S': 19.6 cm/s Doppler Measurements AV Peak Velocity: 1.6 m/s MV Peak E-Wave: 1.07 m/s AV Peak Gradient: 10.24 mmHg MV Peak A-Wave: 0.85 m/s AV Mean Gradient: 7 mmHg MV E/A Ratio: 1.26 LVOT Peak Velocity: 1.04 m/s MV P1/2t: 73 msec TR Gradient:9.49 mmHg PV Peak Velocity: 1.67 m/s Estimated RAP:3 mmHg PV Peak Gradient: 11.16 mmHg Estimated RVSP: 12 mmHg Estimated PASP: 12.49 mmHg E' Septal Velocity: 0.09 m/s A' Septal Velocity: 0.15 m/s E' Lateral Velocity: 0.13 m/s A' Lateral Velocity: 0.13 m/s Findings Left Ventricle Mild concentric left ventricular hypertrophy with normal EFand internal dimension.[place] is moderately hypokinetic with normal WM involving the rest of LV segments. Right Ventricle Normal right ventricle structure and function. Left Atrium Normal left atrial size. Right Atrium Normal right atrial size. Mitral Valve Trivial mitral regurgitation by color Doppler. Aortic Valve Normal aortic valve structure and function. Tricuspid Valve Trivial tricuspid regurgitation by color Doppler. Pulmonic Valve Mild pulmonic stenosis. Pericardial Effusion No evidence of pericardial effusion. Miscellaneous Visualized portions of the aortic root and ascending aorta appear normal in size. Pleural Effusion No evidence of pleural effusion. Contractility Score LV regional wall motion:(0-Non visualized 1-Normal 2-Hypokinesis 3-Akinesis 4-Dyskinesis 5-Aneurysm) Signature dtt: Joyce Hi dtd: 02/16/17 1414 Physician Self Edit
--- NOTE | ~2017-02-16 | DS ---
PATIENT'S NAME: HENRIQUE MEJIA [facility] AGE: 56 Y [address] ROOM: [place] [address] LOCATION: GPCU ADMIT DATE: 02/16/2017 Discharge Summary DISCHARGE DATE: 02/19/2017 FAMILY PHYSICIAN: Jensen Farnsworth MD ATTENDING PHYSICIAN: Joyce Hi DISCHARGE DIAGNOSES: 1. History of an acute anterior wall myocardial infarction, treated with a single drug-eluting stent in October of 2016. 2. Since then he is having recurrent chest pains and back pain similar to his myocardial infarction pains. 3. Difficulty to concentrate and a sense of being out of it and tiring easily. 4. Low blood pressure secondary to Entresto which was discontinued. 5. Elevated cholesterol. 6. History of tobacco abuse which he quit in at the time of myocardial infarction. 7. Intolerance to antidepressants. Prescribed by his primary care physician. 8. Weight loss of 40 pounds since his myocardial infarction. 9. History of increased PSA. 10. History of depression. 11. Negative EGD. 12. Rule out myocardial infarction. Normal EF now by echo. Cardiolite showed anteroseptal and inferior ischemia. 13. Bradycardia during his hospitalization. 14. Cardiac catheterization showed about a 30% lesion in his proximal RCA and a patent stent with slow flow distally. IFR of both the LAD, distal to the stent and distal to the RCA lesions are negative. RECOMMENDATION: 1. Cardiac diet. 2. Activity as tolerated. 3. Home with a 48-hour Holter monitor. 4. Sleep study as an outpatient. 5. Okay to go back to work on 28 of February. 6. Follow up with me in [place]. DISCHARGE MEDICATIONS: 1. Vitamin D3 8000 units a day. 2. Aspirin 81 mg a day. 3. Eplerenone 25 mg a day. 4. Ticagrelor 90 mg twice a day. 5. Tylenol p.r.n. 6. Nitroglycerin 0.4 mg sublingual p.r.n. PATIENT'S NAME: HENRIQUE MEJIA [facility] AGE: 56 Y [address] ROOM: [place] [address] LOCATION: GPCU ADMIT DATE: 02/16/2017 Discharge Summary DISCHARGE DATE: 02/19/2017 FAMILY PHYSICIAN: Jensen Farnsworth MD ATTENDING PHYSICIAN: Joyce Hi 7. Famotidine 20 mg at bedtime. 8. Align capsules. 9. Protonix 40 mg a day. COURSE IN THE HOSPITAL: The patient was hospitalized and ruled out. He underwent a stress test followed by a cardiac catheterization. His symptoms at this time at least are not related to his coronary artery disease. He is being evaluated for other possible related conditions that could be causing some of his symptoms including sleep apnea and significant bradycardia to account for his tiredness. MD LARA LIANG/piter /[id number] CC: Jensen Farnsworth MD d: 02/22/17 1140 t: 02/25/17 1304, DISCHARGE SUMMARY
--- NOTE | ~2017-02-16 | CATH ---
Cardiac Diagnostic + PCI Report Demographics Patient Name ROBERTO Cardozo Gender Male Date of 1960 Age 56 year(s) Patient Number [id number] Date of Study 02/18/2017 Visit Number [id number] Room Number G6319 [place] [id number] Ht 172.72 cm Wt 79.38 kg Referring Daja Rivera MD Primary Physician Physician Performing Sussy Secondary Physician Physician Joyce CEJA Diagnostic Sussy Assisting Physician Physician Joyce CEJA Interventional Sussy Physician Spike Maker Physician Joyce CEJA Findings and Conclusions Diagnostic Findings and Conclusion Elevated LVEDP (20). No gradient across aortic valve. Calcification involving proximal coronaries. Patent LAD stent with DELANEY 2 flow. Proximal RCA:30% (iFR = 1). iFR distal to stent:0.97 Diagnostic Recommendations iFR of RCA and LAD. Interventional Findings and Conclusion 30% lesion in the mildly ectactic portion of proximal dominant RCA with an IFR of 1. Flow down LAD DELANEY 2 without obstructive lesions. IFR 0.97. Interventional Recommendations Medical treatment. Procedure Description The patient was brought to the diagnostic cardiac catheterization-EP laboratory in the fasting, non-sedated state. Informed consent was obtained in the written and verbal form after the risks and benefits were explained. The patient had no further questions and agreed to proceed. The planned puncture-incision site(s) were shaved and prepped with ChloraPrep and draped in the usual sterile manner. Conscious sedation, supplemental oxygen, and pain control medications were delivered by a registered nurse under physician guidance. Surface ECG rhythm, blood pressure measurement, and pulse oximetry were monitored throughout the procedure. Arterial access. The access site was infiltrated with lidocaine. The vessel was entered with the Seldinger technique. A sheath was advanced into the vessel and used for catheter placement. Selective left coronary angiography. A catheter was advanced into the left coronary vessel ostium under Fluoroscopic guidance. Contrast was injected by hand. Images were obtained in multiple projections. Selective right coronary angiography. A catheter was advanced into the right coronary vessel ostium under fluoroscopic guidance. Contrast was injected by hand. Images were obtained in multiple projections. Left heart catheterization. A catheter was advanced across the aortic valve to the left ventricle under fluoroscopic guidance. Resting hemodynamics were obtained. iFR measurement was performed of initial vessel. The vessel was entered with a guiding catheter. The iFR wire was normalized and then advanced across the lesion. Measurements were taken. iFR measurement was performed of additional vessel. The vessel was entered with a guiding catheter. The iFR wire was normalized and then advanced across the lesion. Measurements were taken. Arterial artery hemostasis was achieved. The patient was transferred to a regular nursing floor via cart accompanied by a nurse. The patient left the laboratory in stable condition. Diagnostic Cath Status: Urgent Interventional Cath Status: Elective Procedure Procedure Type Diagnostic procedure:Angiography:, Coronary Angios w/[facility] PCI procedure:Additional Imaging:, FFR/iFR:, Initial Vessel, Add'l Vessel Indications: Chest pain and Abnormal Stress Test. The procedure was explained in detail to the patient. Risks, complications and alternative treatments were reviewed. Written consent was obtained. Medications Reviewed with Patient prior to Procedure. Angiographic Findings Dominance: Right Cardiac Arteries and Lesion Findings LMCA: Luminal irregularities. LAD: Type III. Stent after D1 is patent and jails D2. D1 arises right after origin of LAD. Flow down LAD is sluggish. D1 and D2 are small.There is a previous stent on Prox LAD Proximal subsection showing wide patency. Lesion on Mid LAD: Mid subsection. Pre procedure DELANEY II flow was noted. The guidewire cross was successful.Culprit lesion. Comments:iFR of LAD 0.97 Devices used - Verrata Pressure Wire. Number of passes: 1. Lesion on 2nd Diag: Ostial.50% stenosis . LCx: Luminal irregularities. RCA: Dominant. Proximal stenosis of 30% where there is mild ectasis. Lesion on Prox RCA: Mid subsection.30% stenosis . Pre procedure DELANEY III flow was noted. The guidewire cross was successful.Culprit lesion. FFR + + + + !FFR !Stage/Medication !Dosage ! + + + + !1 ! ! ! + + + + Devices used - Verrata Pressure Wire. Number of passes: 1. Coronary Tree Procedure Data Procedure Date Date: 02/18/2017Start: 01:43 PMEnd: 02:52 PM Entry Locations - Retrograde Percutaneous access was performed through the Right Femoral artery (Primary location). A 7 Fr sheath was inserted. Hemostasis was successfully obtained using Perclose ProGlide (Mcnulty). Closure Comments: Deployed by Martin Navas . Procedure Medications Order and Administration + + + + + !Time !Medication !Dosage !Route ! + + + + + !02/18/2017 01:41 PM !Versed !1 mg !I.V. ! + + + + + !02/18/2017 01:41 PM !Fentanyl !50 mcg !I.V. ! + + + + + !02/18/2017 01:55 PM !Heparin (ACC_3) !5000 units !I.V. bolus ! + + + + + !02/18/2017 02:09 PM !Heparin (ACC_3) !2000 units !I.V. bolus ! + + + + + !02/18/2017 02:18 PM !Heparin (ACC_3) ! !I.V. drip ! + + + + + 02/18/2017 02:27 PM !Atropine !0.5 mg !I.V. ! + + + + + !02/18/2017 02:26 PM !0.9% NaCl !200 ml !I.V. bolus ! + + + + + Devices Used - A6 Fr. BS JR 4 Diag. Catheterwas used for:Right coronary angiography. - A6 Fr. BS JL 4 Diag. Catheterwas used for:Left coronary angiography. - A6 Fr. JR4 Guide Catheterwas used for:RCA Intervention. - A6 Fr. JL 4 JJ Guide Catheterwas used for:LAD Intervention. Contrast Material - Isovue 322815 ml Fluoroscopy Time: Diagnostic: 8:18 minutes. Total: 8:18 minutes. Fluoroscopy Dose: Diagnostic: 1710 mGy. Total: 1710 mGy. Estimated Blood Loss: 10 ml. Medical History Allergies - No known allergies. Risk Factors The patient risk factors include:prior PCI on 11/01/2016;treated hypercholesterolemia, last creatinine: 1.2 mg/dl, creatinine clearance: 78.09 ml/min, dyslipidemia, Current/Recent(w/in 1 year) tobacco use and prior [place] . Admission Data Admission Date: 02/16/2017 Admission Time: 11:48 AM Admit Source: Emergency department Insurance Payors: Private health insurance. Admission Medications + +------+-------+ + + + + !Medication!Dosage!Times !Last !Last !Administered !Comments ! ! ! !Per Day!Delivery !Delivery ! ! ! ! ! ! !Date !Time ! ! ! + +------+-------+ + + + + !Aspirin ! ! ! ! ! ! ! !(any) ! ! ! ! ! ! ! + +------+-------+ + + + + !Statin ! ! ! ! ! ! ! !(any) ! ! ! ! ! ! ! + +------+-------+ + + + + !Ticagrelor! ! ! ! ! ! ! + +------+-------+ + + + + Clinical Evaluation Leading to Procedure Diagnosed on 02/18/2017 02:40 PM. - The patient's CAD presentation was assessed as: Unstable angina. - The patient's anginal syndrome during the past two weeks was assessed as: Class III according to the [place] Cardiovascular Society Classification System (CCS). - The patient has been in a state of heart failure within the past two weeks. - The patient's heart failure status was assessed as NYHA Class I. [place] . Ejection Fraction - Method: Echocardiography. EF%: 55. Hemodynamics Condition: Rest O2 Consumption: Estimated: 213.66Heart Rate: 49 bpm Pressures (mmHg) +-----+ + !Site !Pressure ! +-----+ + !LV !126/-1 ,12 ! +-----+ + !LV !131/0 ,13 ! +-----+ + !LV !124/0 ,19 ! +-----+ + !LV !123/0 ,8 ! +-----+ + !AO !131/69 (94) ! +-----+ + !LV !126/-1 ,11 ! +-----+ + !AO !124/64 (88) ! +-----+ + !AO !121/66 (88) ! +-----+ + Valve Gradients and Areas + +---------+---------+---------+ +---------+ + !Valve !Peak !Mean !Area !Index !Flow !Source ! + +---------+---------+---------+ +---------+ + !Aortic !0 !0 ! ! ! ! ! + +---------+---------+---------+ +---------+ + !Aortic !0 !0 ! ! ! ! ! + +---------+---------+---------+ +---------+ + Shunts Oxygen Values O2 Capacity 189.04 O2 Consumption 213.66 Discharge Data Discharge Date: 02/19/2017 Hospital Status: Inpatient Signatures dtt: Joyce Hi dtblanche: 02/18/17 1343 Physician Self Edit
--- NOTE | ~2017-02-16 | HP ---
PATIENT'S NAME: HENRIQUE MEJIA [facility] AGE: 56 Y [address] ROOM: [address] [place], [place] [id number] LOCATION[facility] ADMIT DATE: 02/16/2017 History & Physical DISCHARGE DATE: FAMILY PHYSICIAN: Jensen Farnsworth MD ATTENDING PHYSICIAN: Joyce Hi DATE OF SERVICE: HISTORY OF PRESENT ILLNESS: Mr. Mejia is a 56-year-old male patient, who had an WY involving the anterior wall on November 01. He was treated with 1 stent. At the time of his WY, he had mostly burning in his back between his shoulder blades with some radiation to the neck as well as some sensations in his chest. Shortly after having his stent, he had recurrences of pain, so he was cathed again and the stent was patent. He had a 60% lesion involving D1, proximal right coronary artery had a 50% to 60% lesion. He had an ejection fraction of 40% at the time of WY. This stent was proximal to the diagonal vessel. He had a nuclear stress test, which showed an EF of 50% later and his echo showed an EF of 45%. At that point, he was sent back to cardiac rehab, and he works as a local company truck driver. I saw him in [facility] because he has not been feeling well, and there has been recurrent episodes of difficulty to concentrate and some sense of feeling out of it and tiring rather easily. He thought his blood pressures were running low whenever he took the Entresto and that was the reason for his ill feeling. He did not have any chest pain or shortness of breath though. He has been exercising 30 minutes a day 5 days a week with no paroxysmal nocturnal dyspnea or orthopnea. He has been in functional class II with no lightheadedness, dizziness, syncope, presyncope, palpitations, or ankle swelling. The patient has history of elevated cholesterol, and he quit smoking at the time of his WY. He has no history of hypertension, type 2 diabetes or family history of premature coronary artery disease. The patient denies any history of rheumatic fever, heart murmur, heart failure, dilated or enlarged heart, or any diagnosed cardiac arrhythmias. After evaluating him, I stopped his Entresto and atorvastatin and cut the eplerenone dose to 12.5 mg a day. I tried to get him set up for a trend oximetry at night, and he did try to go on an antidepressant, which apparently did not help him much. In the meantime, he has been having some burning across the back of his chest again that lasts some hours or so. He also has brief epigastric pain radiating to the left neck. After reviewing his cath film, I wondered whether he should come in to the hospital again as his chest pains were very similar to his WY pains. PATIENT'S NAME: HENRIQUE MEJIA [facility] AGE: 56 Y [address] ROOM: [place] [address] LOC[facility] ADMIT DATE: 02/16/2017 History & Physical DISCHARGE DATE: FAMILY PHYSICIAN: Jensen Farnsworth MD ATTENDING PHYSICIAN: Joyce Hi MEDICATIONS: 1. Acetaminophen 325 mg 2 tablets as needed. 2. Aspirin 81 mg a day. 3. Atorvastatin 80 mg a day. 4. Brilinta 90 mg twice a day. 5. He is holding the atorvastatin. Entresto is being held. 6. Furosemide 20 mg a day. 7. Inspra 25 mg half a tablet a day. 8. Nicotine patch periodically as needed. 9. Nitrostat p.r.n. 10. Vitamin D3 1000 units 4 capsules a day. ALLERGIES: NO KNOWN DRUG ALLERGIES. PAST MEDICAL HISTORY: Apparently, he had a surgery and bone graft to his right leg. SOCIAL HISTORY: The patient has lost about 40 pounds since he has had his WY. He still does not feel good, and his appetite is poor. He sleeps well, but apparently he snores quite badly and that is the reason he had his sleep apnea ordered. He denies abusing alcohol or recreational drugs. FAMILY HISTORY: No premature coronary artery disease. REVIEW OF SYSTEMS: 1. Corrective lenses. 2. History of increased PSA. 3. Depression. 4. The patient had an EGD and scope about 3 weeks ago. PHYSICAL EXAMINATION: VITAL SIGNS: On examination, his blood pressure is 114/68, weight is 179.4 pounds, heart rate is 50, respirations 16, and oxygen saturation is 96 pounds. HEENT: Normal. NECK: Supple with no JVD, thyromegaly, lymphadenopathy, or carotid bruit. CARDIAC: PMI is not well located. First and second heart sounds are regular. There are no added sounds or murmurs. CHEST: Clear to auscultation. ABDOMEN: Soft, nontender. Bowel sounds are normally present. EXTREMITIES: Reveal no edema. CENTRAL NERVOUS SYSTEM: Intact. PATIENT'S NAME: HENRIQUE MEJIA [facility] AGE: 56 Y [address] ROOM: [place] [address] LOC[facility] ADMIT DATE: 02/16/2017 History & Physical DISCHARGE DATE: FAMILY PHYSICIAN: Jensen Farnsworth MD ATTENDING PHYSICIAN: Joyce Hi ASSESSMENT: A 56-year-old male patient with recent history of myocardial infarction in October, treated with primary stent. He has some residual lesions involving his right coronary artery and diagonals. He has not felt well since his myocardial infarction and has lost some weight, in addition to which he is currently beginning to have the same back and chest pain that he had before. RECOMMENDATION: Admit to the hospital for observation and rule him out. If he rules out, we will repeat the stress test. We will also check his D-dimer and proBNP. Again, I appreciate this opportunity to participate in the care of Mr. Mejia. MD LARA LIANG/piter /[id number] D: [id number] T: [id number] HISTORY & PHYSICAL
[~2017-02-16 11:30] MED LIST changes: -ALIGN4 MG PO; -PROTONIX40 MG PO
[2017-02-16] MEDS ORDERED: ALIGN4 MG PO (12:03)
[2017-02-16] MEDS ORDERED: PROTONIX40 MG PO (12:05)
--- NOTE | 2017-02-16 12:40 | NUR ---
PT is 56 y/o male admit for chest pain for . PT alert and oriented x3. Came over from office. No allergies. Hx stent to LAD in as well as an TN. Hx hypercholest,CP,TN,arthritis,gerd,heartburn, constipation,depression. Resides at home by himself. Pt states he's been having chest pain off and on the past couple of days and was just tired of it so he drove from [place] to [place] to see today. Chest xray and EKG done today. Stress test tmw. NPO after midnight.
[2017-02-16 12:43] LABS: BASOPHIL % 0.4 %; EOSINOPHIL # 0.1 K/uL (0.0-0.5); EOSINOPHIL % 0.9 %; HEMATOCRIT 40.3 % (37.0-53.0); HEMOGLOBIN 13.9 g/dL (12.0-17.0); IMMATURE GRANULOCYTE % 0.3 %; LYMPHOCYTE # 1.3 K/uL (0.8-4.0); LYMPHOCYTE % 18.4 %; MCH 32.6 pg (27.0-34.0); MCHC 34.5 gm/dL (32.0-36.5); MCV 94.6 fl (83.0-98.0); MONOCYTE # 0.6 K/uL (0.0-1.0); MONOCYTE % 8.5 %; MPV 11.6 fl (9.4-12.4); NEUTROPHIL # (ANC) 4.9 K/uL (1.4-9.0); NEUTROPHIL % 71.5 %; NRBC % 0 /100WBC (0-0.00); PLATELET COUNT 187 K/uL (150-450); RBC 4.26 M/uL (4.00-6.00); RDW-CV 12.9 % (11.9-14.6); WBC 6.8 K/uL (4.0-11.0)
[2017-02-16 12:54] LABS: INR - (THERAPEUTIC) 1.07 (0.92-1.07); PROTIME 11.2 SECONDS (9.8-11.4); PTT 25 SECONDS (25-32)
[2017-02-16 13:03] LABS: ALBUMIN 3.9 gm/dL (3.5-5.0); ALK PHOS 52 IU/L (33-138); ALT 39 IU/L (12-78); AST 17 IU/L (10-40); BLOOD UREA NITROGEN 19 mg/dL (6-24); CALCIUM 9.1 mg/dL (8.5-10.5); CHLORIDE 108 mMol/L (96-110); CO2 26 mMol/L (22-32); CPK 63 IU/L (35-332); CREATININE 1.2 mg/dL (0.6-1.3); MAGNESIUM 2.2 mg/dL (1.8-2.6); SODIUM 140 mMol/L (135-145); TOTAL BILIRUBIN 0.9 mg/dL (0.0-1.5)
--- NOTE | 2017-02-16 16:29 | NUR ---
Significant Event: A/OX3, VSS ON ROOM AIR. PT. GETS UP SBA TO BATHROOM, RESTING IN BED. NO PAIN OR CHEST PAIN SINCE ADMISSION. PT. NPO AFTER MIDNIGHT FOR STRESS TEST IN AM. ATE ALL OF LUNCH. PT. HASN'T VOIDED YET, STILL NEED A UA. L)FA IV HAS NS @ 75mL/HR, WITH HEPARIN DRIP @ 1000 UNITS/HER, NEXT PTTHP DUE @ 1900. CONTINUES ON ACS ORDERS. DR. Lauren STILL NEEDS TO FILL OUT HOME MED LIST. COOPERATIVE WITH CARES, RESTING IN BED. BRUISE TO R)UPPER ARM. LAST BM WAS THIS AM. Follow up: CONTINUE WITH POC.
[2017-02-16 17:01] LABS: BILIRUBIN URINE NEGATIVE (NEGATIVE); BLOOD URINE NEGATIVE /UL (NEGATIVE); COLOR URINE STRAW (YELLOW); GLUCOSE URINE NEGATIVE (NEGATIVE); KETONE URINE 50 mg/dL (NEGATIVE); LEUKOCYTES URINE NEGATIVE /UL (NEGATIVE); NITRITE URINE NEGATIVE (NEGATIVE); PROTEIN URINE NEGATIVE (NEGATIVE); SPEC GRAVITY URINE 1.025 (1.003-1.035); TURBIDITY URINE CLEAR (CLEAR); UROBILINOGEN URINE 4 mg/dL (NORMAL)
[2017-02-16 19:29] LABS: CPK 55 IU/L (35-332)
[2017-02-17 00:51] LABS: CPK 50 IU/L (35-332)
--- NOTE | 2017-02-17 05:11 | NUR ---
Significant Event: PT HAS RESTED IN BED ALL SHIFT. DENIES ANY C/O PAIN/PRESSURE OR SHORTNESS OF BREATH. HEPARIN INFUSION CONTS AT 1100 UNITS/HR WITH THE NEXT PTTHP AT 0630. VOIDS PER URINAL WITH OUT DIFFICULTY. Follow up: STRESS TEST THIS AM.
[2017-02-17 06:43] LABS: CPK 50 IU/L (35-332)
--- NOTE | 2017-02-17 16:30 | NUR ---
Significant Event: A/OX3, VSS ON ROOM AIR. NO CHEST PAIN/PRESSURE ALL DAY. PT. WENT DOWN FOR STRESS TEST, WILL HAVE A HEART CATH DONE TOMORROW AFTER 1300, GROIN APPROACH. MAY HAVE A CLEAR LIQUID DIET AT 0600, THEN NPO AFTER THAT. PERMITS SIGNED, PT. WOULD LIKE TO SHOWER IN AM & SHAVE GROINS THEN. IV TO L)FA HAS NS @ 75mL/HR AND HEPARIN DRIP @ 1100 UNITS/HR, NEXT PTTHP DUE NOW. PT. GETS UP SBA TO BATHROOM. Follow up: CONTINUE WITH POC.
--- NOTE | 2017-02-18 04:12 | NUR ---
Significant Event: A/0X3. RESTED IN BED ALL OF SHIFT. TURNS SELF. AFEBRILE. VSS ON RA. IV TO L) FA WITH NS @ 75 MLS/H AND HEPARIN RUNNING AT 1200 UNITS/H. NEXT PTTHP. IS AT 0600. DENIES CHEST PAIN. VOIDED 1300 MLS. NO BM THIS SHIFT. WILL BE NPO AT 0600 FOR HEART CATH TODAY. PERMITS SIGNED AND ON THE CHART. GROIN STILL NEEDS PREPPED. HEART CATH AT 1 PM TODAY. Follow up: CONTINUE WITH PLAN OF CARE.
--- NOTE | 2017-02-18 11:46 | NUR ---
Introduced self and role of care management to patient. He lives in [place] by himself. He states that he is able to do all his own ADL's. He has family and friends that are available to assist as needed. He plans on returning home on discharge. He denies any needs at this time. Will continue to follow.
--- NOTE | 2017-02-18 13:56 | NUR ---
1325 PATIENT OFF UNIT TO GO FOR HEART CATH.
--- NOTE | 2017-02-18 13:56 | NUR ---
1318 [facility] LAB ALERT CALLED FOR HEPARIN 71.0-NO ADJUSTMENTS NEEDED LAB PUT IN FOR DRAW AT 0400 TOMORROW
--- NOTE | 2017-02-18 17:04 | NUR ---
PATIENT IS AAOX3. HE MOVES ALL AND FOLLOWS ALL COMMANDS. NO SIGNS OF EDEMA AND PULSES STRONG BIALTERALLY-RADIAL AND PEDAL. PATIENT IS ON ROOM AIR. HE WAS NPO FOR HEART CATH THIS AFTERNOON AND IS NOW ON REGULAR DIET. HE HEPARIN DRIP HAS BEEN TURNED OFF AND AFTER A 500ML BOLUS HIS FLUIDS WILL BE TURNED OFF. HE VOIDS TO URINAL AND IS CURRENTLY RESTING FLAT TILL 1800. HE HAS DENIED ANY PAIN, JUST UNCOMFORTABLE ON HIS BACK. HE CURRENTLY HAS A LEFT FOREARM PIV AND SHOW BRUSING TO HIGH RIGHT UPPER ARM. ALL TESTS WERE NEGATIVE AND PLANS FOR DISCHARGE TOMORROW.
[2017-02-19 03:59] LABS: BASOPHIL % 0.5 %; EOSINOPHIL # 0.2 K/uL (0.0-0.5); EOSINOPHIL % 3.2 %; HEMATOCRIT 36.6 % (37.0-53.0); HEMOGLOBIN 12.2 g/dL (12.0-17.0); IMMATURE GRANULOCYTE % 0.2 %; LYMPHOCYTE # 1.1 K/uL (0.8-4.0); MCH 32.4 pg (27.0-34.0); MCHC 33.3 gm/dL (32.0-36.5); MCV 97.1 fl (83.0-98.0); MONOCYTE # 0.6 K/uL (0.0-1.0); MONOCYTE % 10.8 %; MPV 11.8 fl (9.4-12.4); NEUTROPHIL % 67.3 %; NRBC % 0 /100WBC (0-0.00); RBC 3.77 M/uL (4.00-6.00); RDW-CV 13.2 % (11.9-14.6); WBC 5.9 K/uL (4.0-11.0)
[2017-02-19 04:00] LABS: PLATELET COUNT 149 K/uL (150-450)
--- NOTE | 2017-02-19 05:31 | NUR ---
Significant Event: A&Ox3. FAC/VILLAGRAN. PT is independent in movement. Lung sounds clear. SBP 95-124; HR 50s. PPP. Groin site is soft with dressing C/D/I. Plan is to discharge home today. Follow up: Clarify halter monitor order.
--- NOTE | 2017-02-19 08:00 | NUR ---
PATIENT STATES HE DOES NOT WANT HIS MORNING DOSE OF MEDICATIONS HERE AT HOSPITAL BEFORE DC'D. STATES HE WILL TAKE HIS MORNING MEDICATIONS WHEN HE GETS HOME.
--- NOTE | 2017-02-19 08:57 | NUR ---
PATIENT GIVEN WRITTEN DISMISSAL INSTRUCTIONS INCLUDING NEW HOME MEDICATION LIST WITH PRESCRIPTIONS ON DOSE CHANGE OF INSPRA, D/C NICOTINE PATCH, ACTIVITY RESTRICTIONS INCLUDING NO DRIVING FOR [address] SMITH, NO HEAVY LIFTING OF >5 LBS FOR 5 DAYS, AND INSTRUCTIONS ON HOW TO CARE FOR GROIN SITE POST-HEART CATH. PATIENT TO HAVE SLEEP STUDY OUTPT AND HOLTER MONITOR PLACED IN 10DAYS, AT THAT TIME TO WEAR FOR 48 HOURS. NON-INVASIVE CARDIOLOGY ORDER IN PLACE AND INFORMATION FAXED TO DEPT. PATIENT TO MAKE FOLLOW-UP APPOINTMENT TO SEE DR Lauren IN [place] IN 2 WEEKS. PATIENT STATES UNDERSTANDING OF INFORMATION DISCUSSED WITH RN. TELEMETRY DC'D AND PIV TO LEFT FA DC'D WITH GAUZE AND COBAN APPLIED. AMBULATE TO [facility]ONT OF [facility] ENTRANCE WITH RN, FAMILY AND BELONGINGS BAG AT 0830.
== END 2017-02-19 08:30 | disposition disaster alternative care site (69) ==
LOC: EDSTATUS 11:30 → GPCU 11:48
PROVIDERS: ADMIT Internal Medicine Interventional Cardiology
DX: I25.10 Atherosclerotic heart disease of native coronary artery without angina pectoris (principal); I25.2 Old myocardial infarction; F32.9 Major depressive disorder, single episode, unspecified; E11.9 Type 2 diabetes mellitus without complications; E78.00 Pure hypercholesterolemia, unspecified; Z79.82 Long term (current) use of aspirin; Z79.899 Other long term (current) drug therapy; Z87.891 Personal history of nicotine dependence
CPT/HCPCS: A9500; C1760; C1769; C1887; G0378; G0379; J0461; J1644; J2250; J3010; J7030

== ENCOUNTER 2017-03-24 10:15 | Emergency (ER) | payer OTHER ==
--- NOTE | ~2017-03-24 | ER ---
PATIENT'S NAME: HENRIQUE MEJIA [facility] AGE: 56 Y [address] ROOM: [place] [address] LOCATION: ED ADMIT DATE: 03/24/2017 ER/Outpatient Report DISCHARGE DATE: 03/24/2017 FAMILY PHYSICIAN: Jensen Farnsworth MD ATTENDING PHYSICIAN: Philip Pedraza CHIEF COMPLAINT: Weakness and racing heart. HISTORY OF PRESENT ILLNESS: Mr. Mejia presents for his chronic weakness, which has been slightly worse over the last week. He states that he has been having some significant weight loss over the last several months since the heart attack. He was recently with cardiac catheterization with no intervenable lesions secondary to abnormal echo. He has had multiple scopes since the onset of his symptoms with no acute findings. He states he is only eating once a day, because his acid reflux causes him to have no further appetite. He denies any other symptoms at this time. Regarding his racing heart, the patient states that his heart rate has been in the 80s and 90s which is very abnormal for him today. He states he has had no changes to his medications and he his taking all prescriptions as prescribed. PAST MEDICAL HISTORY: Documented on the record and reviewed by me. SOCIAL HISTORY: Documented on the record and reviewed by me. MEDICATIONS: Documented on the record and reviewed by me. ALLERGIES: DOCUMENTED ON THE RECORD AND REVIEWED BY ME. REVIEW OF SYSTEMS: All systems reviewed and negative except as noted in the HPI. PHYSICAL EXAMINATION: VITAL SIGNS: Blood pressure 146/84, pulse 77, respiratory rate is 16, temperature is 97, SpO2 is 99% on room air, pain 0/10. GENERAL: Age-appropriate male. No apparent pain or distress. Recumbent on exam table. NEUROLOGIC: Awake and alert. GCS 15. No focal deficits. No asymmetry. HEENT: Normocephalic, atraumatic. Eyes are PERRL. Oropharynx is clear. NECK: Supple. Trachea is midline. PATIENT'S NAME: HENRIQUE MEJIA [facility] AGE: 56 Y [address] ROOM: [place] [address] LOCATION: ED ADMIT DATE: 03/24/2017 ER/Outpatient Report DISCHARGE DATE: 03/24/2017 FAMILY PHYSICIAN: Jensen Farnsworth MD ATTENDING PHYSICIAN: Philip Pedraza CHEST: Heart is regular rate and rhythm with no murmurs. LUNGS: Clear to auscultation bilaterally. No rhonchi, wheezes, or rales. ABDOMEN: Soft, nontender, and nondistended. No rebound or guarding. BACK: Normal to inspection and palpation. No CVA tenderness. EXTREMITIES: Warm and well formed, well perfused. No abnormalities appreciated. SKIN: Clean, dry, intact. LABORATORY DATA AND X-RAYS: Chest x-ray unremarkable per my review. EKG is unchanged compared to prior EKGs other than rate. Labs, no appreciable abnormalities of CBC, CMS, or thyroid studies. IMPRESSION: Mild hypovolemia, possible orthostasis. EMERGENCY DEPARTMENT COURSE: The patient was seen and evaluated at bedside. He was found to be hemodynamically stable. We excluded his thyroid or electrolyte abnormalities. With recent cath I do not think this is related to his heart. With his decreased intake, I was concerned about hypovolemia as a presenting symptom. The patient was set up for his chest x-ray and had a marked drop in his blood pressure from his presenting. At that time, he was given a liter of normal saline with marked improvement in his symptoms. Orthostatic vital signs were completed at that time and did not reveal true orthostasis. The patient was feeling much better. We will have him discharged home with instructions to follow up with his primary care provider and encouraged hydration. Return immediately if worse. All questions were answered and the patient was discharged. MD YOCASTA ROMERO/piter /[id number] d: 03/24/[id number] t: 03/28/17749, OUTPATIENT REPORT
[~2017-03-24 10:15] MED LIST changes: +ALIGN4 MG PO; +PROTONIX40 MG PO
[2017-03-24 11:10] LABS: BASOPHIL % 0.4 %; EOSINOPHIL # 0.1 K/uL (0.0-0.5); EOSINOPHIL % 1.2 %; HEMATOCRIT 43.4 % (37.0-53.0); HEMOGLOBIN 14.8 g/dL (12.0-17.0); IMMATURE GRANULOCYTE % 0.4 %; LYMPHOCYTE # 0.9 K/uL (0.8-4.0); LYMPHOCYTE % 12.3 %; MCH 31.4 pg (27.0-34.0); MCHC 34.1 gm/dL (32.0-36.5); MONOCYTE # 0.7 K/uL (0.0-1.0); MONOCYTE % 9.4 %; MPV 11.7 fl (9.4-12.4); NEUTROPHIL # (ANC) 5.8 K/uL (1.4-9.0); NEUTROPHIL % 76.3 %; NRBC % 0 /100WBC (0-0.00); RBC 4.71 M/uL (4.00-6.00); WBC 7.6 K/uL (4.0-11.0)
[2017-03-24 11:12] LABS: MCV 92.1 fl (83.0-98.0); PLATELET COUNT 194 K/uL (150-450)
[2017-03-24 11:18] LABS: INR - (THERAPEUTIC) 1.06 (0.92-1.07); PROTIME 11.1 SECONDS (9.8-11.4); PTT 25 SECONDS (25-32)
[2017-03-24 11:30] LABS: ALBUMIN 3.9 gm/dL (3.5-5.0); ALK PHOS 67 IU/L (33-138); ALT 51 IU/L (12-78); ANION GAP 12.9 (10.0-19.0); AST 24 IU/L (10-40); BLOOD UREA NITROGEN 18 mg/dL (6-24); CALCIUM 9.6 mg/dL (8.5-10.5); CHLORIDE 107 mMol/L (96-110); CO2 26 mMol/L (22-32); CPK 84 IU/L (35-332); MAGNESIUM 2.1 mg/dL (1.8-2.6); POTASSIUM 3.9 mMol/L (3.7-5.1); SODIUM 142 mMol/L (135-145); TOTAL BILIRUBIN 0.9 mg/dL (0.0-1.5); TOTAL PROTEIN 7.4 g/dL (6.0-8.4)
== END 2017-03-24 12:59 | disposition disaster alternative care site (69) ==
LOC: GMED 10:15
PROVIDERS: Emergency Medicine
DX: E86.1 Hypovolemia (principal); Z79.899 Other long term (current) drug therapy; Z79.82 Long term (current) use of aspirin
CPT/HCPCS: J7030